=== PATIENT | female | born 1950 | race Caucasian/White ===

== ENCOUNTER 2018-01-13 23:00 | Observation (INO) | payer BC, OTHER ==
[2018-01-14] MEDS: morphine 4 MG/ML VIAL IV (00:42)
[2018-01-14] MEDS: ONDANSETRON 4 MG INJ IV (00:42)
[2018-01-14 01:00] LABS: ADD MAN DIFF? NO
[2018-01-14 01:01] LABS: WHITE BLOOD COUNT 7.5 10^3/ul (4.8-10.8)
[2018-01-14 01:01] LABS: ABNORMAL IP MESSAGE 1; BASOPHILS % 0.4 % (0.0-2.0); EOSINOPHILS # 0.1 10^3/ul (0.0-0.5); EOSINOPHILS % 0.9 % (0.0-7.0); HEMOGLOBIN 14.4 g/dl (12.0-16.0); LYMPHOCYTES # 2.3 10^3/ul (0.8-2.9); LYMPHOCYTES % 30.5 % (15.0-51.0); MEAN CORPUSCULAR HEMOGLOBIN 31.7 pg (29.0-33.0); MEAN CORPUSCULAR HGB CONC 34.3 g/dl (32.0-37.0); MEAN CORPUSCULAR VOLUME 92.5 fl (82.0-101.0); MEAN PLATELET VOLUME 11.8 fl (7.4-10.4); MONOCYTE # 0.9 10^3/ul (0.3-0.9); MONOCYTES % 11.5 % (0.0-11.0); NEUTROPHIL # 4.2 10^3/ul (1.6-7.5); NEUTROPHILS % 56.3 % (39.0-77.0); RED BLOOD COUNT 4.54 10^6/ul (4.20-5.40); RED CELL DISTRIBUTION WIDTH 13.2 % (11.5-14.5)
[2018-01-14 01:09] LABS: PLATELET COUNT 61 10^3/UL (140-415); POSITIVE DIFF @See below
[2018-01-14 01:22] LABS: ALANINE AMINOTRANSFERASE 307 IU/L (13-69); ALBUMIN 4.2 g/dl (3.3-4.9); ALBUMIN/GLOBULIN RATIO 1.27; ALKALINE PHOSPHATASE 72 IU/L (42-121); ANION GAP 16 (8-16); ASPARTATE AMINO TRANSFERASE 236 IU/L (15-46); BILIRUBIN,INDIRECT 0.1 mg/dl (0-1.1); BILIRUBIN,TOTAL 0.1 mg/dl (0.2-1.3); BLOOD UREA NITROGEN 29 mg/dl (7-20); CALCIUM 9.7 mg/dl (8.4-10.2); CARBON DIOXIDE 29 mmol/L (21-31); CHLORIDE 102 mmol/L (97-110); CREATININE 1.12 mg/dl (0.44-1.00); GLUCOSE 160 mg/dl (70-220); POTASSIUM 4.4 mmol/L (3.5-5.1); SODIUM 143 mmol/L (135-144); TOTAL PROTEIN 7.5 g/dl (6.1-8.1)
[2018-01-14 01:34] LABS: B-TYPE NATRIURETIC PEPTIDE 31 PG/ML (0-125)
[2018-01-14 01:40] LABS: TROPONIN-I < 0.012 ng/ml (0.00-0.12)
[2018-01-14] MEDS: HYDROmorphONE 0.5 MG/0.5 ML SYG IV (01:43)
[2018-01-14] MEDS ORDERED: NACL 0.9% 3 ML SYG IV (02:00)
[2018-01-14] MEDS ORDERED: ONDANSETRON 4 MG INJ IV (02:00)
[2018-01-14] MEDS ORDERED: SUMATRIPTAN 50 MG TAB PO (02:00)
[2018-01-14] MEDS: morphine 2 MG INJ IV ×3 (02:34→11:58)
[2018-01-14] MEDS: SOD CHLORIDE 0.45% 1,000 ML IV (02:35)
[2018-01-14] MEDS: HYDROCODONE/APAP (10/325) TAB PO (04:52)
[2018-01-14 07:25] LABS: CREATINE KINASE 41 IU/L (23-200)
[2018-01-14 07:37] LABS: CK INDEX 1.9; CK-MB 0.77 ng/ml (0.0-2.4)
[2018-01-14 07:40] LABS: TROPONIN-I < 0.012 ng/ml (0.00-0.12)
[2018-01-14] MEDS ORDERED: HYDROCODONE/APAP (10/325) TAB PO (09:00)
[2018-01-14] MEDS: ASPIRIN 81 MG TAB PO (09:06)
[2018-01-14] MEDS: FAMOTIDINE 20 MG TAB PO (09:06)
[2018-01-14] MEDS: DOCUSATE SODIUM 100 MG CAP PO (09:06)
[2018-01-14] MEDS: BENAZEPRIL 20 MG TAB PO (09:06)
[2018-01-14 09:52] LABS: ADD UMIC YES; UR ASCORBIC ACID NEGATIVE (NEGATIVE); UR BACTERIA MANY /HPF (NONE SEEN); UR BILIRUBIN (Dip) NEGATIVE (NEGATIVE); UR BLOOD (Dip) 1+ mg/dL (NEGATIVE); UR CLARITY CLEAR (CLEAR); UR COLOR YELLOW (YELLOW); UR GLUCOSE (Dip) NEGATIVE (NEGATIVE); UR KETONES (Dip) NEGATIVE (NEGATIVE); UR LEUKOCYTE ESTERASE (Dip) NEGATIVE Leu/ul (NEGATIVE); UR NITRITE (Dip) NEGATIVE (NEGATIVE); UR RBC 1 /HPF (0-5); UR SPECIFIC GRAVITY (Dip) 1.015 (1.003-1.030); UR TOTAL PROTEIN (Dip) NEGATIVE (NEGATIVE); UR UROBILINOGEN (Dip) NEGATIVE (NEGATIVE); UR WBC 1 /HPF (0-5)
[2018-01-14 09:54] LABS: CREATINE KINASE 39 IU/L (23-200)
[2018-01-14 09:56] LABS: AMPHETAMINE/METHAMPHETAMINE Negative (NEGATIVE); CK-MB 0.77 ng/ml (0.0-2.4)
[2018-01-14 10:04] LABS: BARBITURATES Negative (NEGATIVE); BENZODIAZEPINES Positive (NEGATIVE); CANNABINOIDS Negative (NEGATIVE); COCAINE Negative (NEGATIVE); OPIATES Positive (NEGATIVE)
[2018-01-14 10:14] LABS: TROPONIN-I < 0.012 ng/ml (0.00-0.12)
[2018-01-14] MEDS: OXYBUTYNIN (XL) 5 MG TAB PO (10:37)
[2018-01-14 11:56] LABS: CREATINE KINASE 39 IU/L (23-200)
[2018-01-14 12:10] LABS: CK INDEX 1.7
[2018-01-14 12:21] LABS: CK-MB 0.66 ng/ml (0.0-2.4); TROPONIN-I < 0.012 ng/ml (0.00-0.12)
[2018-01-14] MEDS: REGADENOSON 0.4 MG/5 ML SYG (13:40)
[2018-01-14] MEDS ORDERED: ATORVASTATIN 10 MG TAB PO (21:00)
== END 2018-01-14 17:45 | disposition home or self-care (01) ==
LOC: E/R 23:00 → TEL 01-14 01:48
DX: R07.9 Chest pain, unspecified (principal); I10 Essential (primary) hypertension; K21.0 Gastro-esophageal reflux disease with esophagitis; E78.5 Hyperlipidemia, unspecified; Z79.82 Long term (current) use of aspirin; R74.0 Nonspecific elevation of levels of transaminase and lactic acid dehydrogenase [LDH]; D69.6 Thrombocytopenia, unspecified; R32 Unspecified urinary incontinence; K29.60 Other gastritis without bleeding; G89.4 Chronic pain syndrome; K59.00 Constipation, unspecified; G43.909 Migraine, unspecified, not intractable, without status migrainosus; B18.2 Chronic viral hepatitis C
CPT/HCPCS: 36415; 71045; 78452; 80053; 80307; 81001; 82550; 82553; 83880; 84484; 85025; 87086; 93005; 93017; 93306; 96374; 96375; 96376; 99285-25; G0378

== ENCOUNTER 2018-07-26 10:20 | Emergency (ER) | payer BC ==
[2018-07-26] MEDS: SOD CHLORIDE 0.9% 1,000 ML IV (11:35)
[2018-07-26] MEDS: HYDROmorphONE 1 MG/ML SYG IV ×2 (11:35→14:31)
[2018-07-26] MEDS: ONDANSETRON 4 MG INJ IV ×2 (11:35→14:31)
[2018-07-26 11:40] LABS: ABNORMAL IP MESSAGE 1; HEMATOCRIT 47.1 % (37.0-47.0); HEMOGLOBIN 15.8 g/dl (12.0-16.0); MEAN CORPUSCULAR HEMOGLOBIN 31.3 pg (29.0-33.0); MEAN CORPUSCULAR HGB CONC 33.5 g/dl (32.0-37.0); MEAN CORPUSCULAR VOLUME 93.5 fl (82.0-101.0); MEAN PLATELET VOLUME 12.4 fl (7.4-10.4); PLATELET COUNT 58 10^3/UL (140-415); RED BLOOD COUNT 5.04 10^6/ul (4.20-5.40); RED CELL DISTRIBUTION WIDTH 12.6 % (11.5-14.5)
[2018-07-26 11:40] LABS: WHITE BLOOD COUNT 6.5 10^3/ul (4.8-10.8)
[2018-07-26 11:48] LABS: ADD MAN DIFF? YES; POSITIVE DIFF @See below
[2018-07-26 11:52] LABS: ADD UMIC YES; UR ASCORBIC ACID NEGATIVE (NEGATIVE); UR BACTERIA FEW /HPF (NONE SEEN); UR BILIRUBIN (Dip) NEGATIVE (NEGATIVE); UR BLOOD (Dip) NEGATIVE (NEGATIVE); UR CLARITY CLOUDY (CLEAR); UR COLOR YELLOW (YELLOW); UR GLUCOSE (Dip) NEGATIVE (NEGATIVE); UR KETONES (Dip) NEGATIVE (NEGATIVE); UR LEUKOCYTE ESTERASE (Dip) 3+ Leu/ul (NEGATIVE); UR NITRITE (Dip) NEGATIVE (NEGATIVE); UR NONSQUAMOUS EPITHELIAL CELL 1 /HPF (NONE SEEN); UR RBC 5 /HPF (0-5); UR SPECIFIC GRAVITY (Dip) 1.015 (1.003-1.030); UR SQUAMOUS EPITHELIAL CELL FEW /HPF (FEW); UR TOTAL PROTEIN (Dip) NEGATIVE (NEGATIVE); UR UROBILINOGEN (Dip) 2+ mg/dL (NEGATIVE); UR WBC > 182 /HPF (0-5)
[2018-07-26 11:58] LABS: INR 1.05; PROTIME 13.8 Sec (11.9-14.9); PT RATIO 1.1
[2018-07-26 11:59] LABS: PARTIAL THROMBOPLASTIN TIME 29.9 Sec (23.0-35.0)
[2018-07-26 12:15] LABS: ALANINE AMINOTRANSFERASE 91 IU/L (13-69); ALBUMIN 3.8 g/dl (3.3-4.9); ALBUMIN/GLOBULIN RATIO 0.86; ALKALINE PHOSPHATASE 70 IU/L (42-121); ANION GAP 15 (8-16); ASPARTATE AMINO TRANSFERASE 116 IU/L (15-46); BILIRUBIN,INDIRECT 0.9 mg/dl (0-1.1); BILIRUBIN,TOTAL 0.9 mg/dl (0.2-1.3); BLOOD UREA NITROGEN 24 mg/dl (7-20); CARBON DIOXIDE 26 mmol/L (21-31); CHLORIDE 102 mmol/L (97-110); CREATININE 0.88 mg/dl (0.44-1.00); GLUCOSE 120 mg/dl (70-220); LIPASE 53 U/L (23-300); SODIUM 138 mmol/L (135-144); TOTAL PROTEIN 8.2 g/dl (6.1-8.1)
[2018-07-26 12:57] LABS: BASOPHILS % (M) 1 % (0-2); LYMPHOCYTES #M 2.9 10^3/ul (0.8-2.9); LYMPHOCYTES % (M) 46 % (15-51); MONOCYTE #M 0.4 10^3/ul (0.3-0.9); MONOCYTES % (M) 7 % (0-11); PLATELET ESTIMATE DECREASED; REACTIVE LYMPHOCYTES #M 0.1 10^3/ul (0.0-0.0); REACTIVE LYMPHOCYTES% (M) 2 % (0-0); SEGMENTED NEUTROPHILS (M) % 44 % (39-77); SMUDGE%M 11 % (0-0)
[2018-07-26] MEDS: IOHEXOL 300MG/ML 150 ML BTL (13:08)
[2018-07-26] MEDS: SOD CHLORIDE 0.9% 100 ML (13:09)
[2018-07-26] MEDS: CEFTRIAXONE 1 GM/50 ML (PMX) 50 ML IVPB (13:57)
== END 2018-07-26 15:17 | disposition home or self-care (01) ==
LOC: E/R 10:20
DX: N30.01 Acute cystitis with hematuria (principal); I10 Essential (primary) hypertension; Z79.82 Long term (current) use of aspirin
CPT/HCPCS: 36415; 74177; 80053; 81001; 83690; 85025; 85610; 85730; 87086; 96374; 96375; 96376; 99285-25

== ENCOUNTER 2018-12-28 12:56 | Emergency (ER) | payer BC ==
[2018-12-28] MEDS: ASPIRIN 81 MG TAB PO (14:37)
[2018-12-28] MEDS: ONDANSETRON 4 MG INJ IV ×3 (14:37→19:35)
[2018-12-28] MEDS: SOD CHLORIDE 0.9% 500 ML IV (14:37)
[2018-12-28] MEDS: morphine 4 MG/ML VIAL IV (14:37)
[2018-12-28 14:51] LABS: ABNORMAL IP MESSAGE 1; HEMATOCRIT 45.8 % (37.0-47.0); HEMOGLOBIN 15.4 g/dl (12.0-16.0); MEAN CORPUSCULAR HEMOGLOBIN 30.9 pg (29.0-33.0); MEAN CORPUSCULAR HGB CONC 33.6 g/dl (32.0-37.0); MEAN CORPUSCULAR VOLUME 91.8 fl (82.0-101.0); MEAN PLATELET VOLUME 11.4 fl (7.4-10.4); RED BLOOD COUNT 4.99 10^6/ul (4.20-5.40); RED CELL DISTRIBUTION WIDTH 12.9 % (11.5-14.5)
[2018-12-28 14:51] LABS: WHITE BLOOD COUNT 7.5 10^3/ul (4.8-10.8)
[2018-12-28 14:54] LABS: PLATELET COUNT 70 10^3/UL (140-415); POSITIVE DIFF @See below
[2018-12-28 14:56] LABS: ADD MAN DIFF? YES
[2018-12-28 15:16] LABS: INR 0.97; PARTIAL THROMBOPLASTIN TIME 28.9 Sec (23.0-35.0)
[2018-12-28 15:21] LABS: ADD UMIC NO; UR ASCORBIC ACID NEGATIVE (NEGATIVE); UR BILIRUBIN (Dip) NEGATIVE (NEGATIVE); UR BLOOD (Dip) NEGATIVE (NEGATIVE); UR CLARITY CLEAR (CLEAR); UR COLOR YELLOW (YELLOW); UR GLUCOSE (Dip) NEGATIVE (NEGATIVE); UR KETONES (Dip) NEGATIVE (NEGATIVE); UR LEUKOCYTE ESTERASE (Dip) NEGATIVE Leu/ul (NEGATIVE); UR NITRITE (Dip) NEGATIVE (NEGATIVE); UR SPECIFIC GRAVITY (Dip) 1.023 (1.003-1.030); UR TOTAL PROTEIN (Dip) NEGATIVE (NEGATIVE); UR UROBILINOGEN (Dip) NEGATIVE (NEGATIVE)
[2018-12-28 15:26] LABS: ALANINE AMINOTRANSFERASE 16 IU/L (13-69); ALBUMIN 4.3 g/dl (3.3-4.9); ALBUMIN/GLOBULIN RATIO 1.19; ALKALINE PHOSPHATASE 65 IU/L (42-121); ANION GAP 12 (5-13); ASPARTATE AMINO TRANSFERASE 51 IU/L (15-46); BILIRUBIN,INDIRECT 0.6 mg/dl (0-1.1); BILIRUBIN,TOTAL 0.6 mg/dl (0.2-1.3); BLOOD UREA NITROGEN 23 mg/dl (7-20); CALCIUM 9.9 mg/dl (8.4-10.2); CARBON DIOXIDE 21 mmol/L (21-31); CHLORIDE 105 mmol/L (97-110); CREATINE KINASE 46 IU/L (23-200); CREATININE 0.86 mg/dl (0.44-1.00); Estimated GFR > 60 mL/min (>60); GLUCOSE 119 mg/dl (70-220); POTASSIUM 4.1 mmol/L (3.5-5.1); SODIUM 138 mmol/L (135-144); TOTAL PROTEIN 7.9 g/dl (6.1-8.1)
[2018-12-28 15:37] LABS: B-TYPE NATRIURETIC PEPTIDE 66 PG/ML (0-125); CK INDEX 1.1; CK-MB 0.49 ng/ml (0.0-2.4); TROPONIN-I < 0.012 ng/ml (0.000-0.120)
[2018-12-28] MEDS: HYDROmorphONE 1 MG/ML SYG IV ×2 (16:14→19:35)
[2018-12-28 16:22] LABS: LYMPHOCYTES #M 1.9 10^3/ul (0.8-2.9); LYMPHOCYTES % (M) 26 % (15-51); MONOCYTE #M 0.4 10^3/ul (0.3-0.9); MONOCYTES % (M) 6 % (0-11); PLATELET ESTIMATE DECREASED; REACTIVE LYMPHOCYTES #M 0.1 10^3/ul (0.0-0.0); REACTIVE LYMPHOCYTES% (M) 2 % (0-0); SEGMENTED NEUTROPHILS (M) % 66 % (39-77); SMUDGE%M 2 % (0-0)
[2018-12-28] MEDS: SOD CHLORIDE 0.9% 100 ML (17:09)
[2018-12-28] MEDS: IOHEXOL 100 ML (17:10)
== END 2018-12-28 19:51 | disposition home or self-care (01) ==
LOC: E/R 19:51
DX: R07.1 Chest pain on breathing (principal); R06.02 Shortness of breath; R09.1 Pleurisy; I10 Essential (primary) hypertension; Z79.82 Long term (current) use of aspirin
CPT/HCPCS: 36415; 71045; 71275; 72100; 80053; 81003; 82550; 82553; 83880; 84484; 85025; 85610; 85730; 93005; 93970; 96374; 96375; 96376; 99285-25